=== PATIENT | female | born 1950 | race Caucasian/White ===

== ENCOUNTER → 2016-12-25 | Outpatient (CLI) | payer BC ==
[~2016-12-25] MED LIST: BENAZEPRIL; BENAZEPRIL-HCTZ1 T14 PO; CLARITIN10 M2 PO; FLAGYL; HYDROCODON-ACE1 EAC9 PO; LEVAQUIN; PHENERGAN25 M1 PO; SYNTHROID0.05 MG PO; [UNRECOGNIZED DRUG - OTHER]
--- NOTE | ~2016-12-25 | MY26 ---
[facility] A Service of [facility] / [facility] RADIOLOGY TEXT RESULTS PATIENT: YOCATSA GONZALES LOCATION: [facility] : 50 UNIT #: [id number] AGE: [address]: Joshua Nichols MD SEX: F ORDER DR: [id number] [facility] [address]. [place], [place] [address] [id number] O MR#: [id number] Acc #: [id number] NAME: YOCASTA GONZALES : 1950 SEX: F STUDY DATE/TIME: 12/25/2016 11:21 UNIT: [facility] ROOM: STUDY DESCRIPTION: [facility] DIAGNOSTIC W/ CAD BILAT Attending Physician: Joshua Nichols M.D. Referring Physician: Joshua Nichols M.D. Ordering Physician: Joshua Nichols M.D. Primary Care Physician: Carrie Amezquita M.D. MEDICAL IMAGING REPORT This report is preliminary unless electronic signature is present EXAM Diagnostic mammogram, 12/25 INDICATION History of right breast cancer status post lumpectomy and radiation. No current complaints. FINDINGS Digital CC and MLO views of both breasts were obtained in addition to a right true lateral view. Study is reviewed with an FDA-approved CAD device. COMPARISON 12/25/2015 and 12/23/2014 FINDINGS Breast parenchyma shows scattered fibroglandular densities. No new masses or suspicious microcalcifications are seen. The lumpectomy bed on the right has demonstrated some further expected contraction. There are a few scattered benign calcifications in the left breast. Findings were discussed with the patient at the time of her exam today. IMPRESSION Benign mammogram. Followup in one year recommended. Patients over the age of 40 are entered into a reminder system with target due date for the next mammogram. A result letter will also be sent to the patient. BIRADS: 2 Benign Finding Dictated by... Holden Owens Jr., M.D. [facility] A Service of [facility] / [facility] RADIOLOGY TEXT RESULTS PATIENT: YOCASTA GONZALES LOCATION: [facility] : 50 UNIT #: [id number] AGE: [address]: Joshua Nichols MD SEX: F ORDER DR: THIS IS AN ELECTRONICALLY VERIFIED REPORT Holden Owens Jr., M.D. at 12/25/2016 4:46 PM Ezra TD: 12/25/2016 15:55 JOB #: [id number] MEDICAL IMAGING REPORT Page 1 of 1 COPY
== END | disposition home or self-care (01) ==
LOC: CMAM 10:47
DX: Z08 Encounter for follow-up examination after completed treatment for malignant neoplasm (principal); Z85.3 Personal history of malignant neoplasm of breast; Z92.3 Personal history of irradiation
CPT/HCPCS: G0204